=== PATIENT | male | born 1950 | race Caucasian/White ===

== ENCOUNTER 2024-05-13 08:16 | Day surgery (SDC) | payer MEDICARE, OTHER ==
[2024-05-13 08:40] VITALS: O2SAT 98
[2024-05-13 09:08] LABS: ANION GAP 18.2 MEQ/L (5-15); Calcium 9.1 mg/dL (8.4-10.2); Creatinine 1 1.01 mg/dL (0.66-1.25); EST GLOMERULAR FILTRATION RATE 77.6 ML/MIN; Potassium 4.4 mmol/L (3.5-5.1)
[2024-05-13] MEDS: Lactated Ringers 1,000 ML IV SCH (09:17)
--- NOTE | 2024-05-13 09:28 | HP ---
HISTORY AND PHYSICAL HISTORY OF PRESENT ILLNESS: History of polyps 5 years ago. 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 No bloody stools. No change in bowel movements. No new pain. Family history unknown. PAST MEDICAL HISTORY: Hypertension, heartburn, heart disease, history of bladder and skin cancer. Has been on some chemo some bladder cancer. Has type 2 diabetes, heart disease. Had some reflux in the past. 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 HOME MEDICATIONS: Rybelsus, Losartan, omeprazole, atorvastatin, hydrochlorothiazide, metoprolol, and metformin. ALLERGIES: No known drug allergies. PAST SURGICAL HISTORY: Has had right hip arthroplasty. Has had bladder tumors excised. He has had cholecystectomy. He has had skin cancer excised and tonsillectomy in the past. SOCIAL HISTORY: Former smoker. No alcohol abuse. FAMILY HISTORY: Unknown, was adopted. REVIEW OF SYSTEMS: Twelve systems reviewed. No chest pain or palpitations. Other systems negative or noncontributory as above and per preadmission questionnaire. PHYSICAL EXAMINATION: GENERAL: Height 5 feet 9 inches, BMI 33.67. No acute distress. HEENT: Sclerae anicteric. NECK: No JVD. CARDIOVASCULAR: Regular rate and rhythm. RESPIRATORY: Equal excursions. Nonlabored breathing. ABDOMEN: Soft. SKIN: Dry. EXTREMITIES: No cyanosis or edema. NEUROLOGIC: Alert. PSYCHIATRIC: Appropriate mood and affect. RECTAL: Deferred until time of endoscopy. ASSESSMENT: History of polyps, history of Benjamin's. Needs EGD and colonoscopy. Risks explained not limited to bleeding, infection, risk of bowel injury or perforation, risk of missed or nondiagnosis or incomplete exam possibly requiring barium enema or swallow, possible for further procedure or referral, risk of anesthesia or sedation, risk of bowel prep but not limited to. We will proceed with EGD, colonoscopy under MAC anesthesia. Otherwise, continue medications for treatment of his bladder cancer, reflux, hypertension, diabetes, hyperlipidemia, and heart disease.
[2024-05-13] MEDS ORDERED: propofoL IV ONE ×2 (10:27→10:57)
[2024-05-13] MEDS ORDERED: Versed 2 MG/2 ML Injection ONE (10:27)
[2024-05-13] MEDS ORDERED: PHENYLEPHRINE HCL ONE (11:14)
[2024-05-13 11:47] VITALS: RESP 18; TEMP 96.9
[2024-05-13 12:05] VITALS: BP 114/69; PULSE 68
--- NOTE | 2024-05-14 11:07 | OP ---
SURGERY DATE/TIME: 05/13/2024 [id number] PREOPERATIVE DIAGNOSES: 1) History of question of Benjamin's. Need for followup upper endoscopy. 2) History of polyps. Need for followup screening colonoscopy. POSTOPERATIVE DIAGNOSES: 1) Mild gastric erythema, biopsy pending. Check for Helicobacter pylori. 2) Slight erythema, distal esophagus, without visible large segments of any salmon pink mucosa. 3) Polyps, transverse colon, ascending colon and sigmoid colon. 4) ASA class is 3. 5) Withdrawal time on the colonoscopy was approximately 14 minutes. 6) Mild diverticulosis, left colon. PROCEDURES: 1) Esophagogastroduodenoscopy with cold biopsy of the antrum for Helicobacter pylori, cold biopsy of distal esophagus to evaluate for similarly inflammation. 2) Colonoscopy to cecum. 3) Hot snare polypectomy of transverse colon polyp, hot snare polypectomy of sigmoid colon polyp. 4) Hot biopsy polypectomy, piecemeal polypectomy, ascending colon polyp. 5) Hot biopsy polypectomy, transverse colon polyp, as well as an additional 2 sigmoid colon polyps removed with hot biopsy forceps. SURGEON: Rodney Corral MD DERMATOLOGY PROCEDURAL PHYSICIAN: DAVY Landeros ESTIMATED BLOOD LOSS: Minimal. DESCRIPTION OF PROCEDURE AND FINDINGS: Patient was taken to the operating room. MAC anesthesia was induced. After official time-out, no disagreement in planned procedure. Bite block positioned. Video gastroscope easily passed down the esophagus through the patent pylorus down to the junction of the third and fourth portions of the duodenum. The duodenum was grossly unremarkable. Scope pulled back into the stomach. There was some gastric erythema. A cold biopsy was taken to evaluate for H pylori. Good hemostasis was noted. On retroflex, there are no signs of any hiatal hernia. The scope was straightened. The GE junction was about 40 cm. There was some slight erythema of the distal esophagus, but he did not appear to have any long segments of salmon pink mucosa at least on endoscopic view at this time. Cold biopsy was taken for evaluation of the slight erythema to evaluate for early inflammation. Good hemostasis was noted. The remainder of the esophagus was grossly unremarkable. The scope was withdrawn. Attention was then turned to colonoscopy. Digital rectal exam did not reveal any rectal masses. Videocolonoscope was inserted and passed up through the tortuous sigmoid, descending, and transverse colon. With external pressure and positioned on his back, the scope was able to be passed around to the cecum. Appendiceal orifice and valve well visualized and photo documented. Prep overall was fair. Some liquidy as well as some bubbles and foam throughout that just slightly limited exam for small lesions. These were suction irrigated as clear as possible. Did slightly limit the evaluation of very small lesions. Again, suction irrigated as clear as possible. On the way back, the scope was withdrawn over the next 14 minutes. There was a small polyp in the ascending colon that was about 3 to 3.5 mm, removed with hot biopsy piecemeal polypectomy with hot biopsy forceps. Good hemostasis was noted. The scope was then pulled back to the transverse colon. Another polyp was removed with hot snare polypectomy. It was about 4 mm or so in size. Another smaller polyp or 2 were removed with hot biopsy polypectomy in the transverse colon. The scope was pulled back. It should be noted there were a few small diverticula in the left colon. There were 2 or 3 small early polyps versus hyperplastic lesions in the sigmoid colon removed with hot biopsy polypectomy. The scope was withdrawn. Patient tolerated the procedure well. There were no immediate complications. Findings were discussed with family out in the waiting area.
== END 2024-05-13 12:06 | disposition home or self-care (01) ==
LOC: SDC 08:16
PROVIDERS: ATTEND Surgery
DX: Z12.11 Encounter for screening for malignant neoplasm of colon (principal); Z09 Encounter for follow-up examination after completed treatment for conditions other than malignant neoplasm; D12.2 Benign neoplasm of ascending colon; D12.5 Benign neoplasm of sigmoid colon; D12.3 Benign neoplasm of transverse colon; Z86.0100 Personal history of colon polyps, unspecified; Z87.19 Personal history of other diseases of the digestive system; I10 Essential (primary) hypertension; Z85.828 Personal history of other malignant neoplasm of skin; E11.9 Type 2 diabetes mellitus without complications; L53.9 Erythematous condition, unspecified; K57.30 Diverticulosis of large intestine without perforation or abscess without bleeding
CPT/HCPCS: 36415; 80048; 93005; 99100; J2250; J2371; J2704